=== PATIENT | female | born 1975 | race African-American/Black ===

== ENCOUNTER 2016-04-25 21:56 | Emergency (ER) | payer OTHER ==
[2016-04-25 22:14] VITALS: TEMP 98.2; BMI 29.9
--- NOTE | 2016-04-25 22:25 | PDOC ---
History of Present Illness - History of Present Illness Initial Comments: 04/25/16 22:40 The patient is a 40 year old female, , with a significant past medical history of Asthma, who presents to the emergency department with diarrhea, headache, vomiting and right flank pain. She reports she has had numerous episodes of diarrhea since yesterday. She states her headache is constant and diffuse. She reports at least 3 episodes of vomiting, last episode before calling the ambulance. The patient states her pain is constant and starts at her right suprapubic region radiating to her right flank and back. She reports having an IUD removed for wrong placement. She denies chest pain, shortness of breath, headache and dizziness. She denies fever, chills, and constipation. She denies dysuria, frequency, urgency and hematuria. Allergies: NKDA Social history: denies tobacco use. Reports occasional alcohol consumption <Inez Dasilva - Last Filed: 04/26/16 01:40> <Beverly Cristina - Last Filed: 04/26/16 01:45> - General Chief Complaint: Pain, Acute Stated Complaint: ABD PAIN Time Seen by Provider: 04/25/16 22:17 Past History <Inez Dasilva - Last Filed: 04/26/16 01:40> - Past Medical History Other medical history: Denies - Immunization History Immunization Up to Date: No - Psycho/Social/Smoking Cessation Hx Anxiety: No Suicidal Ideation: No Smoking History: Never smoked Have you smoked in the past 12 months: No Information on smoking cessation initiated: No Hx Alcohol Use: No Drug/Substance Use Hx: No Substance Use Type: None <Beverly Cristina - Last Filed: 04/26/16 01:45> - Past Medical History Allergies/Adverse Reactions: Allergies Allergy/AdvReac Type Severity Reaction Status Date / Time No Known Allergies Allergy Verified 04/25/16 22:14 Home Medications: Ambulatory Orders NK [No Known Home Medication] 04/25/16 Review of Systems - Review of Systems Able to Perform ROS?: Yes Comments:: 04/25/16 22:40 CONSTITUTIONAL: Absent: fever, chills, diaphoresis, generalized weakness, malaise, loss of appetite HEENT: Absent: rhinorrhea, nasal congestion, throat pain, throat swelling, difficulty swallowing, mouth swelling, ear pain, eye pain, visual Changes CARDIOVASCULAR: Absent: chest pain, syncope, palpitations, irregular heart rate, lightheadedness , peripheral edema RESPIRATORY: Absent: cough, shortness of breath, dyspnea with exertion, orthopnea, wheezing, stridor, hemoptysis GASTROINTESTINAL: (+) Right suprapubic pain, nausea, vomiting, diarrhea, Absent: abdominal distension, constipation, melena, hematochezia GENITOURINARY: (+) Right flank pain. Absent: dysuria, frequency, urgency, hesitancy, hematuria , genital pain MUSCULOSKELETAL: Absent: myalgia, arthralgia, joint swelling SKIN: Absent: rash, itching, pallor HEMATOLOGIC/IMMUNOLOGIC: Absent: easy bleeding, easy bruising, lymphadenopathy, frequent infections ENDOCRINE: Absent: unexplained weight gain, unexplained weight loss, heat intolerance, cold intolerance NEUROLOGIC: Absent: headache, focal weakness or paresthesias, dizziness, unsteady gait, seizure, mental status changes, bladder or bowel incontinence PSYCHIATRIC: Absent: anxiety, depression, suicidal or homicidal ideation, hallucinations. <Inez Dasilva - Last Filed: 04/26/16 01:40> *Physical Exam - Vital Signs Last Vital Signs Temp Pulse Resp BP Pulse Ox 98.2 F 66 18 118/63 99 04/25/16 22:08 04/25/16 22:08 04/25/16 22:08 04/25/16 22:08 04/25/16 22:08 - Physical Exam Comments: 04/25/16 22:41 GENERAL: Well developed, well nourished. Awake and alert. No acute distress. HEENT: Normocephalic, atraumatic. PERRLA, EOMI. No conjunctival pallor. Sclera are non- icteric. Moist mucous membranes. Oropharynx is clear. NECK: Supple. Full ROM. No JVD. Carotid pulses 2+ and symmetric, without bruits. No thyromegaly. No lymphadenopathy. CARDIOVASCULAR: Regular rate and rhythm. No murmurs, rubs, or gallops. Distal pulses are 2+ and symmetric. PULMONARY: No evidence of respiratory distress. Lungs clear to auscultation bilaterally. No wheezing, rales or rhonchi. ABDOMINAL: (+) rigth suprapubic tenderness on palpation. Soft. Non-distended. No rebound or guarding. No organomegaly. Normoactive bowel sounds. MUSCULOSKELETAL (+) Right CVA tenderness. Normal range of motion at all joints. No bony deformities or tenderness. EXTREMITIES: No cyanosis. No clubbing. No edema. No calf tenderness. SKIN: Warm and dry. Normal capillary refill. No rashes. No jaundice. NEUROLOGICAL: Alert, awake, appropriate. Cranial nerves 2-12 intact. Normoreflexic in the upper and lower extremities. Normal speech. Toes are down-going bilaterally. Gait is normal without ataxia. PSYCHIATRIC: Cooperative. Good eye contact. Appropriate mood and affect. <Inez Dasilva - Last Filed: 04/26/16 01:40> - Vital Signs Last Vital Signs Temp Pulse Resp BP Pulse Ox 98.2 F 66 18 118/63 99 04/25/16 22:08 04/25/16 22:08 04/25/16 22:08 04/25/16 22:08 04/25/16 22:08 <Beverly Cristina - Last Filed: 04/26/16 01:45> ED Treatment Course - LABORATORY CBC & Chemistry Diagram: 04/25/16 22:25 04/25/16 22:25 - RADIOLOGY Radiograph Interpretation: 04/26/16 01:41 EXAM: CT abdomen pelvis with contrast was read by Toni Marino D.O.at 01:36 EST REASON FOR EXAM: RLQ pain FINDINGS: Lung bases clear. Hepatomegaly. Gallbladder, pancreas, spleen, and adrenals unremarkable. Negative for urinary calculus or hydronephrosis. Non- obstructive bowel gas pattern. Normal appendix. Trace pelvic free fluid, within normal physiologic limits. No free air. IMPRESSION . Normal appendix. . Hepatomegaly. <Inez Dasilva - Last Filed: 04/26/16 01:40> - LABORATORY CBC & Chemistry Diagram: 04/25/16 22:25 04/25/16 22:25 <Beverly Cristina - Last Filed: 04/26/16 01:45> *DC/Admit/Observation/Transfer - Attestations Scribe Attestion: 04/25/16 22:41 Documentation prepared by Inez Dasilva, acting as bilingual medical receptionist for Beverly Cristina MD <Inez Dasivla - Last Filed: 04/26/16 01:40> <Beverly Cristina - Last Filed: 02/06/17 01:45> Diagnosis at time of Disposition: Right flank pain, Right sided abdominal pain - Discharge Dispostion Disposition: HOME Condition at time of disposition: Stable - Patient Instructions Printed Discharge Instructions: DI for Flank Pain, DI for Abdominal Pain-Adult Additional Instructions: -please follow up with your process control tech if you have persistent discomfort in your -Return if your symptoms worsen,or you develop a fever
[2016-04-25 22:50] LABS: BASOPHIL 0.2 % (0-2.0); EOSINOPHIL 0.4 % (0-4.5); MCH 25.5 pg (25.7-33.7); MCHC 31.8 g/dl (32.0-36.0); MEAN CELL VOLUME 80.1 fl (80-96); NEUTROPHILS 82.4 % (42.8-82.8); PLATELET COUNT 185 K/MM3 (134-434); RDW 14.2 % (11.6-15.6); WHITE BLOOD COUNT 12.9 K/mm3 (4.0-10.0)
[2016-04-25 23:20] LABS: ALBUMIN 3.9 g/dl (3.4-5.0); ALK PHOS 205 U/L (45-117); ANION GAP 10 (8-16); BILIRUBIN,TOTAL 0.3 mg/dL (0.2-1.0); CALCIUM 9.4 mg/dL (8.5-10.1); CO2 28 mmol/L (21-32); CREATININE 0.9 mg/dL (0.55-1.02); GLUCOSE,RANDOM 85 mg/dL (74-106); SGOT/AST 31 U/L (15-37); SGPT/ALT 28 U/L (12-78); TOT PROT 7.4 g/dl (6.4-8.2)
[2016-04-25 23:41] LABS: URINE APPEARANCE SLCLOUDY; URINE BILIRUBIN NEGATIVE (NEGATIVE); URINE BLOOD NEGATIVE (NEGATIVE); URINE COLOR YELLOW; URINE GLUCOSE (UA) NEGATIVE (NEGATIVE); URINE KETONE NEGATIVE (NEGATIVE); URINE NITRITE NEGATIVE (NEGATIVE); URINE PROTEIN NEGATIVE (NEGATIVE); URINE UROBILINOGEN NEGATIVE E.U./dl (0.2-1.0)
[2016-04-25 23:45] LABS: URINE LEUK ESTERASE TRACE (NEGATIVE)
[2016-04-25 23:47] LABS: URINE BACTERIA RARE /hpf (NONE SEEN); URINE MUCUS FEW; URINE RBC 1 /hpf (0-3); URINE WBC 2 /hpf (3-5)
[2016-04-26] MEDS ORDERED: HYDROmorphone HCL CARPU-JECT 1 MG/1 ML DISP.SYRIN IVPUSH ONE (00:15)
[2016-04-26] MEDS ORDERED: SODIUM CHLORIDE 1,000 ML IV STA (00:15)
[2016-04-26] MEDS ORDERED: HYDROmorphone HCL CARPU-JECT 1 MG/1 ML DISP.SYRIN ONE (01:16)
[2016-04-26 02:46] VITALS: BP 105/61; PULSE 77
== END 2016-04-26 02:47 | disposition home or self-care (01) ==
LOC: JER 21:56
PROC: 3E033NZ Introduction of Analgesics, Hypnotics, Sedatives into Peripheral Vein, Percutaneous Approach (ICD-10-PCS; principal; 2016-04-25)
DX: R10.31 Right lower quadrant pain (principal)
CPT/HCPCS: 36415; 74177-TC; 80053; 81003; 81015; 84703; 85025; 99282-25

== ENCOUNTER 2016-04-26 10:43 | Emergency (ER) | payer OTHER ==
[2016-04-26] MEDS ORDERED: morphine CARPU-JECT 4 MG/1 ML DISP.SYRIN IVPUSH ONE (11:14)
[2016-04-26] MEDS ORDERED: morphine CARPU-JECT 4 MG/1 ML DISP.SYRIN ONE (11:23)
--- NOTE | 2016-04-26 11:23 | PDOC ---
History of Present Illness - General Chief Complaint: Pain Stated Complaint: VOMITING,ABD PAIN Time Seen by Provider: 04/26/16 11:00 History Source: Patient - History of Present Illness Timing/Duration: reports: getting worse Abdominal Pain Onset Location: reports: flank (and R pelvis) Past History - Past Medical History Allergies/Adverse Reactions: Allergies Allergy/AdvReac Type Severity Reaction Status Date / Time No Known Allergies Allergy Verified 04/26/16 12:05 Home Medications: Ambulatory Orders Oxycodone HCl/Acetaminophen [Percocet 5-325 mg Tablet] 1 tab PO Q4H #20 tablet MDD 4 04/26/16 Asthma: Yes - Surgical History Abdominal Surgery: Yes (iud removal) - Immunization History Immunization Up to Date: No - Psycho/Social/Smoking Cessation Hx Anxiety: No Suicidal Ideation: No Smoking History: Never smoked Have you smoked in the past 12 months: No Information on smoking cessation initiated: No Hx Alcohol Use: No Drug/Substance Use Hx: No Substance Use Type: None Review of Systems - Review of Systems Constitutional: No: Chills, Fever ABD/GI: No: Constipated, Diarrhea, Nausea, Vomiting : No: Dysuria, Hematuria *Physical Exam - Vital Signs Last Vital Signs Temp Pulse Resp BP Pulse Ox 75 18 129/79 100 04/26/16 10:50 04/26/16 10:50 04/26/16 10:50 04/26/16 10:50 - Physical Exam Comments: 04/26/16 11:23 Pt crying in ED, c/o abd pain General Appearance: Yes: Appropriately Dressed, Severe Distress HEENT: positive: Normal Voice Neck: positive: Supple Respiratory/Chest: negative: Respiratory Distress Female Pelvic Exam: positive: normal external exam, normal adnexa, discharge ( small amount milky white discharge). negative: CMT, adnexal tenderness Gastrointestinal/Abdominal: positive: Normal Bowel Sounds, Soft, Other (diffuse ttp). negative: Distended, Guarding, Rebound Musculoskeletal: negative: CVA Tenderness Integumentary: positive: Dry, Warm Neurologic: positive: Fully Oriented, Alert, Normal Mood/Affect ED Treatment Course - LABORATORY CBC & Chemistry Diagram: 04/26/16 11:40 04/26/16 11:40 - RADIOLOGY Radiology Studies Ordered: Category Date Time Status PELVIS(OTHER) US [US] Stat Ultrasound 04/26/16 11:13 Ordered TRANSVAGINAL ULTRASOUND US [US] Stat Ultrasound 04/26/16 11:13 Ordered Medical Decision Making - Medical Decision Making 04/26/16 11:18 40-year-old female, endorses multiple cysts to right ovary that was found on ultrasound during in August of last year, told she possibly needed surgery by rubber washer in the past, recently moved to [facility] and does not have rubber washer currently and is also waiting for her insurance to be activated, now presents with severe abdominal pain that is mostly located to right flank. Patient states she's had similar pain on and off for the past several months, but that this time symptoms are worse. Patient was seen for pain in the ED last night and had mildly elevated of wbc but only trace pelvic FF on CT, but no s/o infection. Pt returns stating pain worsened since leaving in ED. Denies n/v dysuria, hematuria, vaginal discharge, change in BM, f/c See exam Abd pain S/p s/u in ED last night w/ pelvic FF seen on CT Pain worse now, mostly located to R flank Nael uncomfortable on exam w/ poorly localized ttp w/unremarkable pelvis -pain control -US r/o torsion 04/26/16 12:13 04/26/16 12:17 04/26/16 15:57 Wbc 16 on this visit, up from 12 last night, rest of labs, ua negative. US revealed no findings to explain degree of pain. PID considered but given recurrent pain, no adnexal or CMT, diagnosis less likely. GC/Chlam were sent and if comes back +, pt should be treated for possible PID. Pain currently resolved per pt. Will d/c with prescriptions for pain meds and PSYCHOLOGIST referral. Strict return precautions given to patient *DC/Admit/Observation/Transfer Diagnosis at time of Disposition: Abdominal pain Qualifiers: Abdominal location: generalized Qualified Code(s): R10.84 - Generalized abdominal pain - Discharge Dispostion Disposition: HOME Condition at time of disposition: Improved - Prescriptions Prescriptions: Oxycodone HCl/Acetaminophen [Percocet 5-325 mg Tablet] 1 tab PO Q4H #20 tablet MDD 4 - Referrals Referrals: Joaquim Arizmendi MD [Staff Physician] - - Patient Instructions Printed Discharge Instructions: DI for Abdominal Pain-Adult Additional Instructions: Take medications as directed and return to ER for worsening of symptoms. Please call [phone] in 2 days for culture results. Please call Dr. Arizmendi of PSYCHOLOGIST to make an appointment
[2016-04-26 11:26] VITALS: BMI 33.9
[2016-04-26 11:42] VITALS: TEMP 99.2
[2016-04-26 11:48] LABS: BASOPHIL 0.4 % (0-2.0); EOSINOPHIL 0.2 % (0-4.5); MCH 25.6 pg (25.7-33.7); MCHC 31.5 g/dl (32.0-36.0); MEAN CELL VOLUME 81.2 fl (80-96); MEAN PLT VOLUME 9.2 fl (7.5-11.1); NEUTROPHILS 87.7 % (42.8-82.8); PLATELET COUNT 180 K/MM3 (134-434); RDW 13.7 % (11.6-15.6); WHITE BLOOD COUNT 16.1 K/mm3 (4.0-10.0)
[2016-04-26 12:11] LABS: ALBUMIN 3.9 g/dl (3.4-5.0); ALK PHOS 217 U/L (45-117); ANION GAP 8 (8-16); BILIRUBIN,TOTAL 0.5 mg/dL (0.2-1.0); CALCIUM 9.4 mg/dL (8.5-10.1); CO2 25 mmol/L (21-32); CREATININE 0.8 mg/dL (0.55-1.02); GLUCOSE,RANDOM 84 mg/dL (74-106); SGOT/AST 36 U/L (15-37); SGPT/ALT 30 U/L (12-78); TOT PROT 7.7 g/dl (6.4-8.2)
[2016-04-26 17:15] VITALS: BP 120/70; PULSE 86
== END 2016-04-26 17:15 | disposition home or self-care (01) ==
LOC: JER 10:43
PROC: 3E033NZ Introduction of Analgesics, Hypnotics, Sedatives into Peripheral Vein, Percutaneous Approach (ICD-10-PCS; principal; 2016-04-26)
DX: R10.84 Generalized abdominal pain (principal); J45.909 Unspecified asthma, uncomplicated
CPT/HCPCS: 36415; 76830-TC; 76856-TC; 80053; 84703; 85025; 87491; 87591; 99283-25